=== PATIENT | male | born 1965 | race Caucasian/White ===

== ENCOUNTER 2016-08-21 21:31 | Emergency (ER) | payer OTHER ==
[~2016-08-21] VITALS: Ht 177.8 cm; Wt 99.0 kg
[2016-08-21 21:38] VITALS: Ht 177.8 cm; Wt 99.0 kg
[2016-08-21] MEDS ORDERED: CEPH-443 PO (23:45)
[2016-08-21] MEDS ORDERED: IBUP-1542 PO (23:45)
[2016-08-21] MEDS ORDERED: SULF1TAB31 PO (23:45)
--- NOTE | 2016-08-22 00:13 | ERD ---
ER Documentation Chief Complaint Date/Time DATE: 08/22/16 TIME: 00:05 Chief Complaint right upper leg swelling w/ redness since 3 days ago HPI 51-year-old male complaining of right thigh pain and swelling 3 days. Patient stated that he gave himself testosterone injections twice weekly. He had never had problems until 3 days ago. He noticed pain immediately after the injection. The pain and swelling has been increasing in the last 3 days. Denies fever or chills. Denies shortness of breath. ROS All systems reviewed and are negative except as per history of present illness. Medications Home Meds Active Scripts Cephalexin* (Keflex*) 500 Mg Capsule, 500 MG PO QID for 7 Days, CAP Prov:OMID FELDER. WAFER FABRICATOR 08/21/16 Sulfamethoxazole/Trimethoprim* (Bactrim Ds* Tablet) 1 Each Tablet, 1 TAB PO BID for 7 Days, #14 TAB Prov:OMID FELDER. WAFER FABRICATOR 08/21/16 Ibuprofen* (Motrin*) 600 Mg Tab, 600 MG PO Q6H Y for PAIN AND OR ELEVATED TEMP, #30 TAB Prov:OMID FELDER. WAFER FABRICATOR 08/21/16 Allergies Allergies: Coded Allergies: No Known Allergy (Unverified , 08/21/16) PMhx/Soc Medical and Surgical Hx: pt denies Medical Hx, pt denies Surgical Hx History of Surgery: No (PT. DENIES MEDICAL AND SURGICAL HX.) Hx Alcohol Use: No Hx Substance Use: No Hx Tobacco Use: No Smoking Status: Never smoker Physical Exam Vitals Vital Signs Date Time Temp Pulse Resp B/P Pulse Ox O2 Delivery O2 Flow Rate FiO2 08/21/16 21:38 98.9 103 20 148/110 97 Physical Exam General: Well-developed, well-nourished, conscious and coherent, in no distress Skin: Warm and dry, good texture and turgor. Erythema and induration noted on the right upper thigh, approximately 20 cm in size. No fluctuance. Tender to palpation. Head: Normocephalic without evidence of trauma Eyes: Sclera and conjunctivae normal; pupils equal, round, and reactive to light; extraocular movements are intact Chest: Normal AP diameter. Good expansion without retractions. Nontender. Lungs are clear to auscultate bilaterally with good tidal volume Heart: Regular rate and rhythm. No murmur, rub, or gallops heard Abdomen: Soft and nontender without masses, guarding, or rebound. Bowel sounds are active. No hepatosplenomegaly Extremities: Full range of motion. Good strength bilaterally. No clubbing, cyanosis, or edema. Peripheral pulses are intact. Sensation intact Neuro: Alert and oriented 4, GCS 15. Cranial nerves grossly intact. Motor and sensory exams nonfocal. Moves all extremities. Speech clear. Gait normal Procedures/MDM Well-appearing 51-year-old male present ED with what appears to be cellulitis of his right upper thigh secondary to testosterone injection. Doppler ultrasound was obtained to rule out DVT. Preliminary Doppler ultrasound readings are negative for DVT. Official report pending at this time. There is no sign of abscess at this time. No sign of systemic infection as patient is afebrile. Patient appears well, stable for discharge and outpatient management. Medical decision making shared with patient and family. Education provided to patient and family. Patient and family expressed understanding of the plan. Medications on discharge: Ibuprofen, Bactrim DS, Keflex. Follow-up: Return to ED in 2 days for recheck. Departure Diagnosis: Primary Impression: Cellulitis of right thigh Condition: Good Patient Instructions: Cellulitis Referrals: [facility] YOU HAVE RECEIVED A MEDICAL SCREENING EXAM AND THE RESULTS INDICATE THAT YOU DO NOT HAVE A CONDITION THAT REQUIRES URGENT TREATMENT IN THE EMERGENCY DEPARTMENT. FURTHER EVALUATION AND TREATMENT OF YOUR CONDITION CAN WAIT UNTIL YOU ARE SEEN IN YOUR DOCTORS OFFICE WITHIN THE NEXT 1-2 DAYS. IT IS YOUR RESPONSIBILITY TO MAKE AN APPOINTMENT FOR FOLOW-UP CARE. IF YOU HAVE A PRIMARY DOCTOR --you should call your primary doctor and schedule an appointment IF YOU DO NOT HAVE A PRIMARY DOCTOR YOU CAN CALL OUR PHYSICIAN REFERRAL HOTLINE AT IF YOU CAN NOT AFFORD TO SEE A PHYSICIAN YOU CAN CHOSE FROM THE FOLLOWING [facility] CL[facility]ICS [facility] [address]. [facility] [address] [facility] [address] [facility] [address] [facility] [address] [place] [address]. [facility]. [address] Additional Instructions: Return to this facility in 2 DAYS for a follow-up exam.Return sooner if your condition worsens. OMID FELDER NP August 22, 2016 00:13
[2016-08-22 00:14] VITALS: BP 145/98; PULSE 104; RESP 20; TEMP 98.9
--- NOTE | 2016-08-22 00:17 | RADRPT ---
PROCEDURE: Ultrasound examination of the right lower extremity with Doppler. CLINICAL INDICATION: Right leg pain and swelling. TECHNIQUE: Multiple sonographic images of the right lower extremity were performed with pires scal e and color Doppler. COMPARISON: None. FINDINGS: The right common femoral, superficial femoral and popliteal veins demonstrate normal color flow, wav eforms, compression and response augmentation. There is no evidence of deep venous thrombosis. IMPRESSION: No evidence of deep venous thrombosis within the right lower extremity. .Alberto Fabian MD, Date Time Electronically viewed and signed by .Alberto Fabian MD, on 08/22/2016 00:17 .T/
== END 2016-08-21 23:59 | disposition home or self-care (01) ==
LOC: FTE 21:31
DX: L03.115 Cellulitis of right lower limb (principal)
CPT/HCPCS: 93971

== ENCOUNTER 2016-09-11 15:14 | Emergency (ER) | payer OTHER ==
[~2016-09-11] VITALS: Ht 182.9 cm; Wt 90.0 kg
[~2016-09-11 15:14] MED LIST: CEPH-443 PO; IBUP-1542 PO; SULF1TAB31 PO
[2016-09-11 15:23] VITALS: Ht 182.9 cm; Wt 90.0 kg
[2016-09-11] MEDS ORDERED: SULF1TAB31 PO (15:38)
[2016-09-11] MEDS ORDERED: CEPH-443 PO (15:38)
--- NOTE | 2016-09-11 15:53 | ERD ---
ER Documentation Chief Complaint Date/Time DATE: 09/11/16 TIME: 15:50 Chief Complaint RIGHT BUTTOCK POSSSIBLE ABCESS HPI This 51-year-old male complains of some redness and swelling on his right buttock for last 3 days. History is significant for an abscess on the thigh treated with antibiotics only successfully approximately 3-4 weeks ago. Denies fevers, vomiting, shortness breath or chest pain. ROS All systems reviewed and are negative except as per history of present illness. Medications Home Meds Active Scripts Sulfamethoxazole/Trimethoprim* (Bactrim Ds* Tablet) 1 Each Tablet, 1 TAB PO BID for 10 Days, #20 TAB Prov:STACI GABRIEL MD 09/11/16 Cephalexin* (Keflex*) 500 Mg Capsule, 500 MG PO QID for 10 Days, CAP Prov:STACI GABRIEL MD 09/11/16 Cephalexin* (Keflex*) 500 Mg Capsule, 500 MG PO QID for 7 Days, CAP Prov:OMID FELDER NP 08/21/16 Sulfamethoxazole/Trimethoprim* (Bactrim Ds* Tablet) 1 Each Tablet, 1 TAB PO BID for 7 Days, #14 TAB Prov:OMID FELDER NP 08/21/16 Ibuprofen* (Motrin*) 600 Mg Tab, 600 MG PO Q6H Y for PAIN AND OR ELEVATED TEMP, #30 TAB Prov:OMID FELDER NP 08/21/16 Allergies Allergies: Coded Allergies: No Known Allergy (Unverified , 08/21/16) PMhx/Soc History of Surgery: No (PT. DENIES MEDICAL AND SURGICAL HX.) Hx Alcohol Use: No Hx Substance Use: No Hx Tobacco Use: No Physical Exam Vitals Vital Signs Date Time Temp Pulse Resp B/P Pulse Ox O2 Delivery O2 Flow Rate FiO2 09/11/16 15:23 98.1 97 20 130/90 99 Physical Exam Const: [] Alert, [id number]. Head: Atraumatic Eyes: Normal Conjunctiva ENT: Normal External Ears, Nose and Mouth. Neck: Full range of motion..~ No meningismus. Resp: Clear to auscultation bilaterally Cardio: Regular rate and rhythm, no murmurs Abd: Soft, non tender, non distended. Normal bowel sounds Skin: No petechiae or rashes. In the right lateral buttock there is approximately 2 x 3 cm area of induration without appreciable fluctuance and no discharge or streaking. Back: No midline or flank tenderness Ext: No cyanosis, or edema Neur: Awake and alert Psych: Normal Mood and Affect Results 24 hrs Current Medications Medications (Trade) Dose Ordered Sig/Eleanor Route PRN Reason Start Time Stop Time Status Last Admin Dose Admin Trimethoprim/ Sulfamethoxazole (Bactrim (Ds)) 1 tab ONCE ONCE PO 09/11/16 16:00 09/11/16 16:01 09/11/16 15:47 Cephalexin (Keflex) 500 mg ONCE ONCE PO 09/11/16 16:00 09/11/16 16:01 09/11/16 15:47 Procedures/MDM Patient presents with an early abscess in the right lateral buttock. He was given Bactrim and Keflex he will be treated with Bactrim and Keflex at home instructions for warm compresses. Patient is advised to recheck in 2-3 days for reevaluation for persistent lesion for possible incision and drainage. There is no current evidence of abscess to be drained, sepsis, additional complications. Patient was advised to observe his environment for potential sources of reinfection and clean appropriately. Departure Diagnosis: Primary Impression: Abscess Condition: Stable Patient Instructions: Abscess, Antiobiotic Treatment Only Additional Instructions: Apply warm compresses. Recheck for worsening redness, swelling, fevers or new worsening symptoms. Clean areas and environment which may be source of infection-sink handles, doorknobs, moist areas. STACI GABRIEL MD Sep 11, 2016 15:53
[2016-09-11] MEDS ORDERED: TRIMETHOPRIM/SULFAMETHOX (DS) TAB PO ONE (16:00)
[2016-09-11] MEDS ORDERED: CEPHALEXIN 500 MG CAP PO ONE (16:00)
== END 2016-09-11 16:03 | disposition home or self-care (01) ==
LOC: FTE 15:14
DX: L02.31 Cutaneous abscess of buttock (principal)
CPT/HCPCS: Z7502; Z7610; 99284

== ENCOUNTER 2017-09-21 09:49 | Emergency (ER) | END 2017-09-21 11:11 | disposition home or self-care (01) ==

== ENCOUNTER 2018-06-23 14:58 | Emergency (ER) | payer OTHER ==
[~2018-06-23] VITALS: Ht 170.2 cm; Wt 112.2 kg
[2018-06-23 15:12] VITALS: Ht 170.2 cm; Wt 112.2 kg
[2018-06-23] MEDS ORDERED: SULF1TAB31 PO (18:06)
[2018-06-23] MEDS ORDERED: CEPH-443 PO (18:06)
--- NOTE | 2018-06-23 18:13 | ERD ---
ER Documentation Chief Complaint Chief Complaint knee pain & swelling 1day after testosterone injection HPI This is a 52-year-old male with a history of hypertension who presents ED with complaints of right anterior knee pain and swelling times 2 days. Patient states that he has been injecting himself with testosterone for the past 2 years and he injected himself in his right thigh 2 days ago and he started developing the knee pain and swelling. Patient states that this is happened on other occasions and has been diagnosed with cellulitis and given antibiotics. Patient admits to some mild redness and mild painful range of motion. Denies fever, chills, tingling, numbness, lack sensation, decreased range of motion, chest pain, shortness breath, trouble breathing and all other symptoms. No known drug allergies. ROS All systems reviewed and are negative except as per history of present illness. Medications Home Meds Active Scripts Cephalexin* (Keflex*) 500 Mg Capsule, 500 MG PO QID for 7 Days, CAP Prov:OSWALDO SINGH PA-C 06/23/18 Sulfamethoxazole/Trimethoprim* (Bactrim Ds* Tablet) 1 Each Tablet, 1 TAB PO BID, #14 TAB Prov:OSWALDO SINGH PA-C 06/23/18 Sulfamethoxazole/Trimethoprim* (Bactrim Ds* Tablet) 1 Each Tablet, 1 TAB PO BID for 7 Days, #14 TAB Prov:STACI GABRIEL MD 09/21/17 Cephalexin* (Keflex*) 500 Mg Capsule, 500 MG PO QID for 7 Days, CAP Prov:STACI GABRIEL MD 09/21/17 Sulfamethoxazole/Trimethoprim* (Bactrim Ds* Tablet) 1 Each Tablet, 1 TAB PO BID for 10 Days, #20 TAB Prov:STACI GABRIEL MD 09/11/16 Cephalexin* (Keflex*) 500 Mg Capsule, 500 MG PO QID for 10 Days, CAP Prov:STACI GABRIEL MD 09/11/16 Cephalexin* (Keflex*) 500 Mg Capsule, 500 MG PO QID for 7 Days, CAP Prov:OMID FELDER NP 08/21/16 Sulfamethoxazole/Trimethoprim* (Bactrim Ds* Tablet) 1 Each Tablet, 1 TAB PO BID for 7 Days, #14 TAB Prov:OMID FELDER NP 08/21/16 Ibuprofen* (Motrin*) 600 Mg Tab, 600 MG PO Q6H PRN for PAIN AND OR ELEVATED TEMP, #30 TAB Prov:OMID FELDERDevyn VIDEO MANAGER 08/21/16 Allergies Allergies: Coded Allergies: No Known Allergy (Unverified , 08/21/16) PMhx/Soc History of Surgery: No (PT. DENIES MEDICAL AND SURGICAL HX.) Hx Miscellaneous Medical Probl: Yes (Hormonal therapy, CELLULITIS OF RT KNEE) Hx Alcohol Use: Yes (occasional) Hx Substance Use: No Hx Tobacco Use: No Smoking Status: Never smoker FmHx Family History: No diabetes Physical Exam Vitals Vital Signs Date Temp Pulse Resp B/P (MAP) Pulse Ox O2 O2 Flow FiO2 Time Delivery Rate 06/23/18 98.6 106 22 141/99 96 15:12 (113) Physical Exam Physical Exam Vitals signs: Reviewed by me. General: Well developed, well nourished, in no acute distress. Patient is awake and alert. Head: Normocephalic, atraumatic. Eyes: Normal conjunctiva, Pupils PERRLA, EOM intact grossly ENT: Pharynx is clear, Moist mucous membranes, external ears, nose and mouth normal Neck: Supple, no masses, lymphadenopathy or JVD Respiratory: Clear to auscultation bilaterally with no wheezing, rhonchi, rales, no distress Cardiovascular: RRR, no murmurs, rubs, or gallop MSK: No edema, no unilateral swelling, 5/5 strength, right knee is nontender to palpation with no obvious swelling, no decreased range of motion with flexion extension, Neurologic: Alert and oriented, moving all extremities, normal speech, no focal weakness, no cerebellar signs. Normal mentation Skin: warm and dry, No rash, mild area of redness on patient's right anterior thigh, no lymphatic streaking, Psych: Normal mood Procedures/MDM ER COURSE: The patient was stable throughout ED course. I kept the patient and/or family informed of laboratory and diagnostic imaging results throughout the emergency room course. The patient was promptly evaluated and a treatment plan was devised based on H&P and other data. This plan was discussed with the patient who agreed and had no further questions or concerns prior to discharge. MEDICAL DECISION MAKING: This is a 52-year-old male presents ED with right knee pain times 2 days. Patient has some mild redness along an injection site where he had injected testosterone into his right anterior thigh. Patient states that this has happened on 2 other occasions and he was diagnosed with cellulitis and given antibiotics. This likely could be an early cellulitis. There is no lymphatic streaking. There is no fluctuant mass or abscess to be drained. Low suspicion for deep space infection, compartment syndrome, abscess, sepsis, neurovascular injury, ostium myelitis, gangrene, septic joint, sepsis tendon injury. Patien t's vitals are stable and pt can be managed with close outpatient follow-up. Advised patient follow-up with primary care in the next 48 hours. Advised to return to ED with any worsening symptoms. DISPOSITION PLAN: We discussed follow up with the patient's primary care doctor within 24 to 48 hours. Patient counseled regarding my diagnostic impression and care plan. Prior to discharge all questions answered. Pt agrees with treatment plan and understands strict return precautions. Precautionary instructions provided including instructions to return to the ER if not improving or for any worsening or changing symptoms or concerns. ExitCare instructions provided. Prior to discharge, patients vital signs have been reviewed SPECIALIST FOLLOW UP RECOMMENDED: None Patient has been advised to follow up with primary care in 1-2 days. Disclaimer: Inadvertent spelling and grammatical errors are likely due to EHR/dictation software use and do not reflect on the overall quality of patient care. Also, please note that the electronic time recorded on this note does not necessarily reflect the actual time of the patient encounter. Blood Pressure Assessment: Patient's blood pressure was elevated (>120/80) but appears stable without evidence of hypertension emergency or urgency. The patient was counseled about the risks of hypertension and urged to pursue outpatient monitoring and therapy within a week with their primary care physician. Departure Diagnosis: Primary Impression: Knee pain Chronicity: acute Laterality: right Qualified Codes: M25.561 - Pain in right knee Condition: Stable Patient Instructions: Cellulitis, Knee Pain, Uncertain Cause Referrals: COMMUNITY CLINICS YOU HAVE RECEIVED A MEDICAL SCREENING EXAM AND THE RESULTS INDICATE THAT YOU DO NOT HAVE A CONDITION THAT REQUIRES URGENT TREATMENT IN THE EMERGENCY DEPARTMENT. FURTHER EVALUATION AND TREATMENT OF YOUR CONDITION CAN WAIT UNTIL YOU ARE SEEN IN YOUR DOCTORS OFFICE WITHIN THE NEXT 1-2 DAYS. IT IS YOUR RESPONSIBILITY TO MAKE AN APPOINTMENT FOR FOLOW-UP CARE. IF YOU HAVE A PRIMARY DOCTOR --you should call your primary doctor and schedule an appointment IF YOU DO NOT HAVE A PRIMARY DOCTOR YOU CAN CALL OUR PHYSICIAN REFERRAL HOTLINE AT IF YOU CAN NOT AFFORD TO SEE A PHYSICIAN YOU CAN CHOSE FROM THE FOLLOWING [facility] CL[facility]ICS [facility] [address] [facility] [address] [facility] [address] [facility] [address] [facility] [address] [facility] [facility]. [address] Additional Instructions: Patient advised to return to the ED immediately for new or worsening symptoms. Patient advised to follow up with primary care provider in the next 24-48 hours. Patient verbalized understanding and agrees with treatment plan and course of action. If patient has no primary care they may follow up with one of the [facility] clinics listed on the following page or one of the options listed below [facility] + [facility] [address] [place] [address] or [facility] [address] [place] [address] or [facility] [address] [place] [address] OSWALDO SINGH PA-C Jun 23, 2018 18:12
[2018-06-23 18:38] VITALS: BP 160/94; PULSE 104; RESP 18
== END 2018-06-23 18:39 | disposition home or self-care (01) ==
LOC: FTE 14:58
DX: M25.561 Pain in right knee (principal); I10 Essential (primary) hypertension
CPT/HCPCS: 99283